=== PATIENT | female | born 1945 | race Caucasian/White ===

== ENCOUNTER 2020-10-02 12:08 | Day surgery (SDC) | payer MEDICARE, OTHER ==
[~2020-10-02] VITALS: Ht 157.5 cm; Wt 94.3 kg
[~2020-10-02 12:08] MED LIST: ALBU90OI INH; ATOR10 PO; MULTIPLE VITAM1 EACH PO; NORVASC5 MG PO
[2020-10-02] MEDS ORDERED: Aspir 8181 MG PO (12:42)
[2020-10-02] MEDS ORDERED: ACET500 PO (12:42)
== END 2020-10-02 14:18 | disposition home or self-care (01) ==
LOC: ORSCSDS 12:08
PROVIDERS: Surgery
PROC: 0DBP8ZX Excision of Rectum, Via Natural or Artificial Opening Endoscopic, Diagnostic (ICD-10-PCS; principal; 2020-10-02 13:30)
PROC: 0DBL8ZX Excision of Transverse Colon, Via Natural or Artificial Opening Endoscopic, Diagnostic (ICD-10-PCS; principal; 2020-10-02 13:30)
DX: Z12.11 Encounter for screening for malignant neoplasm of colon (principal); D12.3 Benign neoplasm of transverse colon; K62.1 Rectal polyp; K57.30 Diverticulosis of large intestine without perforation or abscess without bleeding; I10 Essential (primary) hypertension; J45.909 Unspecified asthma, uncomplicated; E66.01 Morbid (severe) obesity due to excess calories; Z68.38 Body mass index [BMI] 38.0-38.9, adult; Z79.899 Other long term (current) drug therapy
CPT/HCPCS: 88305; J2704; J7120

== ENCOUNTER 2024-07-17 11:19 | Day surgery (SDC) | payer MEDICARE, OTHER ==
[~2024-07-17] VITALS: Ht 157.5 cm; Wt 95.8 kg
[~2024-07-17 11:19] MED LIST changes: +ACET500 PO; +Aspir 8181 MG PO; +Balanced Salt Epinephrine Irrigation Solution 500 mL IR SCH; +Diazepam 5 MG Tab PO PRN; +Diazepam 5 MG Tab PO SCH; +Lidocaine HCl/Pf 1% 5 ML VIAL XX SCH; +Moxifloxacin HCL 0.5 MG/0.1 ML 0.4MLSYR RIGHTEYE SCH; +Ondansetron 4 MG SoluTab MM PRN; +PHENYLEPHRINE\\TROPICAMIDE\\TETRACAINE OPHTHALMIC DILATING SOLN RIGHTEYE PRN; +Povidone-Iodine 450 DROP/30 ML Solution ONE; +Povidone-Iodine 450 DROP/30 ML Solution RIGHTEYE SCH; +Tetracaine HCl/Pf 0.5% Opth Soln 4 ml ONE
[2024-07-17] MEDS ORDERED: Diazepam 10 MG Tab ONE (12:25)
[2024-07-17] MEDS ORDERED: Prinivil10 MG PO (12:44)
[2024-07-17] MEDS ORDERED: Ondansetron HCl 2 MG / ML 2ML Vial ONE (12:54)
[2024-07-17] MEDS ORDERED: Labetalol HCL 5 MG/ML 4ML Injection (Single Dose) ONE (13:16)
[2024-07-17 13:38] VITALS: BP 148/86
== END 2024-07-17 13:53 | disposition home or self-care (01) ==
LOC: ORSCSDS 11:19
PROVIDERS: Student in an Organized Health Care Education/Training Program
PROC: 08RJ3JZ Replacement of Right Lens with Synthetic Substitute, Percutaneous Approach (ICD-10-PCS; principal; 2024-07-17 13:00)
DX: H25.813 Combined forms of age-related cataract, bilateral (principal); E78.5 Hyperlipidemia, unspecified; I10 Essential (primary) hypertension; J45.909 Unspecified asthma, uncomplicated; Z79.899 Other long term (current) drug therapy
CPT/HCPCS: A9270; J2405; V2632

== ENCOUNTER 2024-07-24 10:48 | Day surgery (SDC) | payer MEDICARE, OTHER ==
[~2024-07-24] VITALS: Ht 165.1 cm; Wt 95.5 kg
[~2024-07-24 10:48] MED LIST changes: -Diazepam 5 MG Tab PO PRN; -Diazepam 5 MG Tab PO SCH; +Moxifloxacin HCL 0.5 MG/0.1 ML 0.4MLSYR LEFTEYE SCH; -Moxifloxacin HCL 0.5 MG/0.1 ML 0.4MLSYR RIGHTEYE SCH; +NS 500 ML IV ONE; -Ondansetron 4 MG SoluTab MM PRN; +PHENYLEPHRINE\\TROPICAMIDE\\TETRACAINE OPHTHALMIC DILATING SOLN LEFTEYE PRN; -PHENYLEPHRINE\\TROPICAMIDE\\TETRACAINE OPHTHALMIC DILATING SOLN RIGHTEYE PRN; +Povidone-Iodine 450 DROP/30 ML Solution LEFTEYE SCH; -Povidone-Iodine 450 DROP/30 ML Solution RIGHTEYE SCH; +Prinivil10 MG PO
[2024-07-24] MEDS ORDERED: NS 500 ML IV ONE (11:07)
[2024-07-24] MEDS ORDERED: FentaNYL Citrate 50 MCG/ML 2 ML Injection ONE (11:35)
[2024-07-24] MEDS ORDERED: Midazolam HCl 1MG / ML 2ML Vial ONE (11:35)
[2024-07-24] MEDS ORDERED: Esmolol HCL 10 MG/ML 10ML VIAL ONE (11:49)
[2024-07-24 12:42] VITALS: BP 167/86
== END 2024-07-24 12:21 | disposition home or self-care (01) ==
LOC: ORSCSDS 10:48
PROVIDERS: Student in an Organized Health Care Education/Training Program
PROC: 08RK3JZ Replacement of Left Lens with Synthetic Substitute, Percutaneous Approach (ICD-10-PCS; principal; 2024-07-24 13:00)
DX: H25.812 Combined forms of age-related cataract, left eye (principal); Z96.1 Presence of intraocular lens; I10 Essential (primary) hypertension; J45.909 Unspecified asthma, uncomplicated; Z79.899 Other long term (current) drug therapy; E66.9 Obesity, unspecified; Z68.38 Body mass index [BMI] 38.0-38.9, adult
CPT/HCPCS: J2250; J3010; J7040; V2632

== ENCOUNTER → 2024-09-19 | Outpatient (CLI) | payer MEDICARE, OTHER ==
[~2024-09-19] MED LIST changes: -Balanced Salt Epinephrine Irrigation Solution 500 mL IR SCH; -Lidocaine HCl/Pf 1% 5 ML VIAL XX SCH; -Moxifloxacin HCL 0.5 MG/0.1 ML 0.4MLSYR LEFTEYE SCH; -NS 500 ML IV ONE; -PHENYLEPHRINE\\TROPICAMIDE\\TETRACAINE OPHTHALMIC DILATING SOLN LEFTEYE PRN; -Povidone-Iodine 450 DROP/30 ML Solution LEFTEYE SCH; -Povidone-Iodine 450 DROP/30 ML Solution ONE; -Tetracaine HCl/Pf 0.5% Opth Soln 4 ml ONE
[2024-09-19 17:41] LABS: BASOPHILS ABSOLUTE AUTO 0.01 K/mm3 (0.00-0.23); BASOPHILS PERCENT AUTO 0 % (0-2); EOSINOPHILS ABSOLUTE AUTO 0.06 K/mm3 (0.00-0.68); EOSINOPHILS PERCENT AUTO 1 % (0-6); Hematocrit 38.7 % (33.0-51.0); Hemoglobin 13.5 g/dL (11.5-16.0); IMMATURE GRAN PERCENT AUTO 0 % (0-1); LYMPHOCYTES ABSOLUTE AUTO 2.55 K/mm3 (0.84-5.20); LYMPHOCYTES PERCENT AUTO 48 % (21-46); MONOCYTES ABSOLUTE AUTO 0.35 K/mm3 (0.16-1.47); MONOCYTES PERCENT AUTO 7 % (4-13); Mean Corpuscular HGB 30.5 pg (26.0-34.0); Mean Corpuscular HGB Conc 34.9 g/dL (31.5-36.5); Mean Corpuscular Volume 88 fL (80-100); Mean Platelet Volume 10.3 fL (9.1-12.4); NEUTROPHILS ABSOLUTE AUTO 2.38 K/mm3 (1.96-9.15); NEUTROPHILS PERCENT AUTO 45 % (41-73); Platelet Count 161 K/mm3 (150-400); RDW Coefficient Variation 13.1 % (11.7-14.2); RDW Standard Deviation 41.9 fL (35.1-46.3); Red Blood Cell Count 4.42 M/mm3 (3.80-5.20); White Blood Cell Count 5.35 K/mm3 (4.00-11.30)
[2024-09-19 17:56] LABS: Alanine Aminotransfer (ALT/SGP 23 U/L (12-78); Albumin, Blood 3.7 g/dL (3.4-5.0); Albumin/Globulin Ratio 1.1 (0.8-1.8); Alk Phos 81 U/L (50-136); Anion Gap 9 mmol/L (3-11); Aspartate Aminotrans (AST/SGOT 16 U/L (12-37); Bilirubin, Total 0.4 mg/dL (0.1-1.0); Blood Urea Nitrogen 15 mg/dL (8-24); Bun/Creatinine Ratio 20.4 (12.0-20.0); CHOL/HDL RATIO 5.2; CO2, Blood 28 mmol/L (21-32); Calcium, Blood 9.2 mg/dL (8.5-10.1); Chloride, Blood 107 mmol/L (98-108); Cholesterol 250 mg/dL (50-200); Creatinine, Blood 0.74 mg/dL (0.40-1.00); Globulin, Blood 3.3 g/dL (2.2-4.0); Glomerular Filtration Rate 84 (60-); Glucose, Blood 91 mg/dL (70-99); HDL Cholesterol 48 mg/dL (>39); LDL/HDL RATIO 3.5; Low Density Lipoprotein Chol 167 mg/dL (0-110); Potassium, Blood 3.6 mmol/L (3.5-5.5); Sodium, Blood 140 mmol/L (136-145); Triglycerides 177 mg/dL (30-160); Very Low Density Lipoprot Chol 35 mg/dL (6-32)
== END | disposition home or self-care (01) ==
LOC: LAB 16:04 → LAB SHORT 16:04
PROVIDERS: Nurse Practitioner Family
DX: I10 Essential (primary) hypertension (principal); E78.5 Hyperlipidemia, unspecified
CPT/HCPCS: 80053; 80061; 85025